=== PATIENT | female | born 1985 | race Caucasian/White ===

== ENCOUNTER 2017-05-30 20:54 | Emergency (ER) | payer MEDICARE, MEDICAID ==
[~2017-05-30] VITALS: Ht 152.4 cm; Wt 59.9 kg
--- NOTE | 2017-05-30 21:21 | ED Head Injury ---
General Chief Complaint: Trauma-Non Activation Stated Complaint: FALL,HEAD INJ Nursing Triage Note: PT TO ED W/ C/O HEAD PAIN R/T FALL. SEE TRAUMA ASSESSMENT Source: patient History of Present Illness Time seen by provider: 21:10 Initial Comments PT ARRIVES VIA POV FROM [facility] PT WAS SKATING AND FELL BACKWARDS,HITTING BACK OF HEAD ON FLOOR OF RINK OCCURRED IMMEDIATELY PRIOR TO ARRIVAL NO LOSS OF CONSCIOUSNESS NO VISION CHANGES C/O SEVERE PAIN TO BACK OF HEAD C/O NECK PAIN C/O NAUSEA, NO VOMITING NO DIZZINESS NO PARESTHESIAS OR MOTOR DEFICITS NO OTHER INJURIES Location Injury Occurred: [facility] Allergies and Home Medications Allergies Coded Allergies: morphine (Verified Allergy, Unknown, 05/30/17) Uncoded Allergies: ERYTHROMYCIN (Allergy, Unknown, 05/30/17) PCN (Allergy, Unknown, 05/30/17) SULFA (Allergy, Unknown, 05/30/17) Constitutional: no symptoms reported Eyes: No Symptoms Reported Ears, Nose, Mouth, Throat: no symptoms reported Respiratory: no symptoms reported Cardiovascular: no symptoms reported Gastrointestinal: see HPI, nausea Genitourinary: no symptoms reported : No (S/P BTL AND ENDOMETRIAL ABLATION--NO LONGER HAS PERIODS) Musculoskeletal: see HPI, neck pain Skin: no symptoms reported Psychiatric/Neurological: See HPI, Anxiety, Denies Cognitive Dysfunction, Headache, Denies Numbness, Denies Tonic Clonic Seizures, Denies Weakness Endocrine: No Symptoms Reported Hematologic/Lymphatic: No Symptoms Reported Past Lqhmyzo-Nlgdgg-Negudh Hx Patient Social History Alcohol Use: Occasionally Uses Recreational Drug Use: No Smoking Status: Never a Smoker Recent Foreign Travel: No Contact w/Someone Who Travel: No Recent Infectious Disease Expo: No Physical Abuse: No Sexual Abuse: No Mistreated: No Fear: No Surgeries History of Surgeries: Yes (EGD; ENDOMETRIAL ABLATION) Surgeries: Gallbladder, Tubal Ligation Respiratory History of Respiratory Disorde: No Cardiovascular History of Cardiac Disorders: No Neurological History of Neurological Disord: No Reproductive System : No Hx Reproductive Disorders: Yes Female Reproductive Disorders: 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 Genitourinary History of Genitourinary Disor: No Gastrointestinal History of Gastrointestinal Di: No Musculoskeletal History of Musculoskeletal Dis: No Endocrine History of Endocrine Disorders: No HEENT History of HEENT Disorders: No Cancer History of Cancer: No Psychosocial History of Psychiatric Problem: No Suicide Risk Score: 0 Integumentary History of Skin or Integumenta: No Blood Transfusions History of Blood Disorders: No Physical Exam Vital Signs Vital Sign - Last 12Hours 05/30/17 21:02 Temp 97.6 Pulse 81 Resp 18 B/P (MAP) 102/69 (80) Pulse Ox 100 O2 Delivery Room Air Capillary Refill : Less Than 3 Seconds General Appearance: WD/WN, other (CRYING, SOMEWHAT DRAMATIC, HOLDING HEAD AND NECK VERY STIFFLY. TALKS "BABY TALK" ) HEENT: PERRL/EOMI, normal ENT inspection, TMs normal, pharynx normal, other ( TENDERNESS, HEMATOMA TO BACK/CROWN OF HEAD) Neck: tender lateral, tender midline Cardiovascular: normal peripheral pulses, regular rate, rhythm, no edema, no JVD, no murmur Respiratory: chest non-tender, normal breath sounds, no respiratory distress, no accessory muscle use Gastrointestinal: normal bowel sounds, non tender, soft Back: normal inspection, no CVA tenderness, no vertebral tenderness Extremities: normal range of motion, non-tender, normal inspection, no pedal edema, no calf tenderness, normal capillary refill Psychiatric: alert, oriented x 3 Crainal Nerves: normal hearing, normal speech, PERRL Coordination/Gait: normal gait Motor/Sensory: no motor deficit, no sensory deficit, no pronator drift Skin: normal color, warm/dry Progress/Results/Core Measures Results/Orders My Orders Orders - JOSE CARRILLO DO Ct Head/Cervical Spine Wo (05/30/17 21:14) Cervical Collar (05/30/17 21:15) Ondansetron Injection (Zofran Injectio (05/30/17 22:00) Acetaminophen Tablet (Tylenol Tablet) (05/30/17 22:00) Ondansetron Oral Dissolve Tab (Zofran (05/30/17 22:00) Ondansetron Oral Dissolve Tab (Zofran (05/30/17 21:55) Medications Given in ED Current Medications Medications Dose Ordered Sig/Dali Route Start Time Stop Time Status Last Admin Dose Admin Acetaminophen 1,000 mg ONCE ONCE PO 05/30/17 22:00 05/30/17 22:01 DC 05/30/17 22:02 1,000 MG Ondansetron HCl 4 mg ONCE ONCE PO 05/30/17 22:00 1/6/18 22:01 DC 05/30/17 22:02 4 MG Vital Signs/I&O Vital Sign - Last 12Hours 05/30/17 21:02 Temp 97.6 Pulse 81 Resp 18 B/P (MAP) 102/69 (80) Pulse Ox 100 O2 Delivery Room Air Blood Pressure Mean: 80 Progress Note : Progress Note PT IMMEDIATELY PLACED IN CERVICAL COLLAR AND LAID FLAT ON ER CART Diagnostic Imaging Comments CT HEAD/CERVICAL SPINE--SOFT TISSUE HEMATOMA TO RIGHT OCCIPUT, OTHER [place] NO ACUTE INTRACRANIAL PROCESS--PER RADIOLOGIST REPORT @ 0009 Reviewed: Reviewed by Me Departure Impression Impression: Primary Impression: Minor head injury without loss of consciousness Additional Impression: Cervical myofascial strain Disposition: HOME, SELF-CARE Condition: Stable Departure-Patient Inst. Referrals: NO,LOCAL PHYSICIAN (PCP/Family) Primary Care Physician Patient Instructions: Minor Head Injury (DC), Neck Sprain (DC) Add. Discharge Instructions: TYLENOL NEEDED FOR PAIN FOR FIRST 24 HOURS, AFTER 24 HOURS YOU MAY ADD IBUPROFEN NEEDED FOR PAIN ICE TO AREA AT 20 MINUTE INTERVALS TO SORE AREA FOLLOW UP WITH DR OF CHOICE IN 2-3 DAYS IF NO BETTER All discharge instructions reviewed with patient and/or family. Voiced understanding. JOSE CARRILLO DO May 30, 2017 21:21
--- NOTE | 2017-05-30 21:37 | Diagnostic Imaging Report ---
PROCEDURE: CT head and CT cervical spine without contrast. TECHNIQUE: Multiple contiguous axial images were obtained through the brain and cervical spine without the use of intravenous contrast. Sagittal and coronal reformations through the cervical spine were then performed. INDICATION: Fall rollerskating. No comparison available. FINDINGS: There is a soft tissue hematoma demonstrated overlying the right occipital region but no underlying calvarial fracture. There is no CT evidence of acute intracranial hemorrhage. There is no abnormal extra-axial fluid collection. There is no mass effect or shift. There is no hydrocephalus. Huffman-white differentiation are preserved. The mastoids are clear. The paranasal sinuses appear clear. Cervical spine demonstrates normal alignment. There is a normal relationship of lateral masses of C1 and C2. The facets are normally aligned. There is no abnormal facet joint or disc space widening. The vertebral body heights are well-maintained. There is no abnormal prevertebral soft tissue thickening and there is no acute cervical spine fracture demonstrated. Lung apices are clear. Soft tissues of the neck demonstrate no acute process. IMPRESSION: 1. No CT evidence of an acute intracranial abnormality 2. Right occipital subcutaneous hematoma without underlying calvarial fracture 3. No evidence of cervical spine fracture or traumatic malalignment. Dictated by: Dictated on workstation # [id number]
[2017-05-30] MEDS ORDERED: ONDANSETRON 4 MG (ZOFRAN) ORAL DISSOLVE TAB ONE (21:55)
[2017-05-30] MEDS ORDERED: ACETAMINOPHEN 500 MG TAB (TYLENOL) PO ONE (22:00)
[2017-05-30] MEDS ORDERED: ONDANSETRON 4 MG/2 ML (SDV) Z0FRAN IVP ONE (22:00)
[2017-05-30] MEDS ORDERED: ONDANSETRON 4 MG (ZOFRAN) ORAL DISSOLVE TAB PO ONE (22:00)
[2017-05-30 22:10] VITALS: BP 106/68
== END 2017-05-30 22:10 | disposition home or self-care (01) ==
LOC: ER 21:00
DX: S09.90XA Unspecified injury of head, initial encounter (principal); S16.1XXA Strain of muscle, fascia and tendon at neck level, initial encounter; Z98.51 Tubal ligation status; V00.211A Fall from ice-skates, initial encounter
CPT/HCPCS: 70450; 72125; 99283